=== PATIENT | male | born 1990 ===

== ENCOUNTER → 2018-06-16 21:36 | Outpatient (REF) | payer OTHER, SELFPAY ==
[2018-06-20 08:24] LABS: Syphilis AB Cascading Reflex NEGATIVE (Negative)
[2018-06-21 20:35] LABS: Mitogen-NIL 6.39 IU/mL; NIL 0.01 IU/mL; QuantiFERON TB NEGATIVE (Negative); TB1-NIL < 0.01 IU/mL; TB2-NIL < 0.01 IU/mL
== END ==
LOC: LAB 21:36
PROVIDERS: Visit Provider Family Medicine
DX: Z11.3 Encounter for screening for infections with a predominantly sexual mode of transmission (principal); Z11.1 Encounter for screening for respiratory tuberculosis
CPT/HCPCS: 36415; 86480; 86780; 87591